=== PATIENT | male | born 1990 | race Caucasian/White ===

== ENCOUNTER 2016-12-24 06:01 | Emergency (ER) | payer BC, OTHER ==
[~2016-12-24] VITALS: Ht 177.8 cm; Wt 117.9 kg
[~2016-12-24 06:01] MED LIST: ALBUTEROL2.5 MG/0.5 INH; AMBIEN 5 MG TABL5 M1 PO; AMITRIPTYLINE H10 M3 PO; AMOXICILLIN 50500 M1 PO; ATIVAN1 MG PO; BACTRIM DS TAB1 EACH PO; CARAFATE 1 GM TA1 G1; CARISOPRODOL 3350 MG PO; CATAPRES0.1 MG PO; CELEXA20 MG PO; CELEXA40 MG PO; CIALIS10 MG PO; CLARITIN10 MG PO; DILAUDID 2 MG TA2 MG; DILAUDID 2 MG TA2 MG PO; GABADONE CAPSU1 EAC1 PO; HYDROCHLOROTHIA25 M2 PO; HYDROCODON-ACE1 EAC8 PO; IBUPROFEN 600600 M1 PO; KETALAR100 MG/1 M PO; LAMICTAL100 MG PO; LEVAQUIN 500 M500 M2 PO; LEXAPRO20 MG PO; LIORESAL 10 MG10 MG PO; LISINOPRIL20 MG PO; LOPRESSOR25 PO; LOXAPINE10 MG PO; MEDROLDOSEPACK PO; MOBIC15 MG PO; NEURONTIN 300300 M1 PO; NORCO 5-325 TA1 EACH PO; OMEPRAZOLE40 MG PO; OXYCODONE HCL 55 MG PO; OXYCODONE HCL E10 MG PO; OXYCONTIN10 M1 PO; PERCOCET 10-321 EACH PO; PERCOCET 5-3251 EACH PO; PHENERGAN 25 MG25 M1 PO; PRAZOSIN HCL1 MG PO; PREDNISONE 10 M10 MG PO; PREDNISONE 20 M20 MG PO; PREDNISONE50 MG PO; PRILOSEC 20 MG20 MG PO; PROAIR HFA8.5 GM IH; PROZAC10 MG PO; RISPERDAL0.25 MG PO; SEROQUEL 50 MG50 MG PO; TESSALON PERLE100 MG PO; TIZANIDINE HCL2 M1 PO; TYLENOL325 MG PO; VALIUM10 MG PO; VALIUM5 MG PO; VENTOLIN HFA 1818 GM INH; VICOPROFEN 2001 EACH PO; XANAX 1 MG TABLE1 MG PO; XANAX XR1 MG PO; ZOFRAN ODT4 MG PO; ZUPLENZ4 MG PO
[2016-12-24] MEDS ORDERED: NORCO 5-325 TA1 EACH PO (07:17)
== END 2016-12-24 07:52 | disposition home or self-care (01) ==
LOC: ER 06:01
DX: M54.6 Pain in thoracic spine (principal); J06.9 Acute upper respiratory infection, unspecified; J45.909 Unspecified asthma, uncomplicated; F12.10 Cannabis abuse, uncomplicated; G40.909 Epilepsy, unspecified, not intractable, without status epilepticus; Z86.69 Personal history of other diseases of the nervous system and sense organs

== ENCOUNTER 2017-01-17 08:56 | Emergency (ER) | payer BC, OTHER ==
[~2017-01-17] VITALS: Ht 177.8 cm; Wt 127.0 kg
[2017-01-17] MEDS ORDERED: OXYCONTIN10 M1 PO (09:19)
[2017-01-17 09:55] LABS: URINE BILIRUBIN NEGATIVE (Negative); URINE BLOOD NEGATIVE (Negative); URINE COLOR YELLOW; URINE GLUCOSE-RANDOM* NEGATIVE (Negative); URINE KETONES NEGATIVE (Negative); URINE NITRITE NEGATIVE (Negative); URINE PROTEIN (DIPSTICK) NEGATIVE (Negative); URINE UROBILINOGEN 0.2 E.U./dl (0.2-1.0)
[2017-01-17 10:01] LABS: ABSOLUTE NEUTROPHILS 3.9 thou/uL (1.4-8.2); BASOPHILS 0.5 % (0.0-2.0); EOSINOPHILS 1.8 % (0.0-3.0); HEMATOCRIT 44.2 % (42.0-52.0); HEMOGLOBIN 15.3 gm/dL (14.0-18.0); LYMPHOCYTES 24.4 % (24.0-44.0); MCH 32.8 pg (26.0-34.0); MCHC 34.6 g/dL (28.0-37.0); MCV 94.9 fL (80.0-100.0); MONOCYTES 8.8 % (1.0-8.0); PLATELET COUNT 169 thou/uL (150-400); POLYS 64.5 % (36.0-66.0); RBC 4.66 mil/uL (4.50-6.00); RDW 12.3 % (10.5-14.5)
[2017-01-17 10:03] LABS: MANUAL DIFF NO
[2017-01-17 10:07] LABS: CALCIUM 9.1 mg/dL (8.5-10.1); CREATININE 0.9 mg/dL (0.7-1.3); POTASSIUM 4.2 mmol/L (3.5-5.1)
[2017-01-17 10:19] LABS: SSA (PROTEIN CONFIRMATORY) NEGATIVE (Negative)
[2017-01-17 11:35] LABS: AMP/METHAMP Negative (Negative); BARBITURATES Negative (Negative); BENZODIAZEPINES POSITIVE (Negative); COCAINE Negative (Negative); METHADONE Negative (Negative); OPIATES Negative (Negative); PCP Negative (Negative); THC POSITIVE (Negative)
== END 2017-01-17 12:30 | disposition home or self-care (01) ==
LOC: ER 08:56
PROVIDERS: Nurse Practitioner
DX: R10.9 Unspecified abdominal pain (principal); R11.2 Nausea with vomiting, unspecified; J45.909 Unspecified asthma, uncomplicated; G40.909 Epilepsy, unspecified, not intractable, without status epilepticus; F12.10 Cannabis abuse, uncomplicated; Z87.891 Personal history of nicotine dependence; Z88.8 Allergy status to other drugs, medicaments and biological substances; Z86.69 Personal history of other diseases of the nervous system and sense organs

== ENCOUNTER 2017-01-24 10:47 | Emergency (ER) | payer BC, OTHER ==
[~2017-01-24] VITALS: Ht 175.3 cm; Wt 127.0 kg
[2017-01-24] MEDS ORDERED: DOXYCYCLINE 10100 MG PO (13:56)
[2017-01-24] MEDS ORDERED: HYDROCODONE-AP1 EAC6 PO (13:56)
[2017-01-24] MEDS ORDERED: IBUPROFEN 800800 M1 PO (13:56)
== END 2017-01-24 14:00 | disposition home or self-care (01) ==
LOC: ER 10:47
DX: L02.01 Cutaneous abscess of face (principal); J45.909 Unspecified asthma, uncomplicated; F10.99 Alcohol use, unspecified with unspecified alcohol-induced disorder; Z87.891 Personal history of nicotine dependence; Z91.041 Radiographic dye allergy status

== ENCOUNTER 2017-02-15 11:49 | Emergency (ER) | payer BC, OTHER ==
[~2017-02-15] VITALS: Ht 177.8 cm; Wt 117.9 kg
[~2017-02-15 11:49] MED LIST changes: +DOXYCYCLINE 10100 MG PO; +HYDROCODONE-AP1 EAC6 PO; +IBUPROFEN 800800 M1 PO
[2017-02-15] MEDS ORDERED: IBUPROFEN 800800 M1 PO (13:39)
[2017-02-15] MEDS ORDERED: ZOFRAN ODT4 MG PO (13:49)
== END 2017-02-15 14:02 | disposition home or self-care (01) ==
LOC: ER 11:49
DX: S16.1XXA Strain of muscle, fascia and tendon at neck level, initial encounter (principal); S70.01XA Contusion of right hip, initial encounter; S09.90XA Unspecified injury of head, initial encounter; M25.511 Pain in right shoulder; J45.909 Unspecified asthma, uncomplicated; Z91.041 Radiographic dye allergy status; Z87.891 Personal history of nicotine dependence; W10.9XXA Fall (on) (from) unspecified stairs and steps, initial encounter; Y93.89 Activity, other specified; Y92.89 Other specified places as the place of occurrence of the external cause; Y99.8 Other external cause status

== ENCOUNTER 2017-03-06 14:51 | Emergency (ER) | payer BC, OTHER ==
[~2017-03-06] VITALS: Ht 175.3 cm; Wt 117.9 kg
[2017-03-06 15:33] LABS: ABSOLUTE NEUTROPHILS 8.3 thou/uL (1.4-8.2); BASOPHILS 0.5 % (0.0-2.0); EOSINOPHILS 0.3 % (0.0-3.0); HEMATOCRIT 47.4 % (42.0-52.0); HEMOGLOBIN 16.7 gm/dL (14.0-18.0); LYMPHOCYTES 17.2 % (24.0-44.0); MCH 32.7 pg (26.0-34.0); MCHC 35.2 g/dL (28.0-37.0); MCV 92.9 fL (80.0-100.0); MONOCYTES 7.8 % (1.0-8.0); PLATELET COUNT 208 thou/uL (150-400); POLYS 74.2 % (36.0-66.0); RDW 12.9 % (10.5-14.5); WBC 11.2 thou/uL (4.0-11.0)
[2017-03-06 15:35] LABS: MANUAL DIFF NO
[2017-03-06] MEDS ORDERED: CARAFATE 1 GM TA1 G1 PO (16:08)
== END 2017-03-06 16:22 | disposition home or self-care (01) ==
LOC: ER 14:51
PROVIDERS: Nurse Practitioner
DX: R07.0 Pain in throat (principal); J45.909 Unspecified asthma, uncomplicated; Z91.041 Radiographic dye allergy status; Z87.891 Personal history of nicotine dependence

== ENCOUNTER 2017-05-06 11:20 | Emergency (ER) | payer BC, OTHER ==
[~2017-05-06] VITALS: Ht 175.3 cm; Wt 127.0 kg
[~2017-05-06 11:20] MED LIST changes: +ALPRAZOLAM2 M2 PO; +CARAFATE 1 GM TA1 G1 PO; +CLONAZEPAM 0.50.5 M1 PO; +LOPERAMIDE 2 MG2 M1 PO; +PEPCID20 MG PO
[2017-05-06 11:50] LABS: URINE BILIRUBIN NEGATIVE (Negative); URINE BLOOD 3+ (Negative); URINE CLARITY CLEAR; URINE COLOR YELLOW; URINE GLUCOSE-RANDOM* NEGATIVE (Negative); URINE KETONES NEGATIVE (Negative); URINE NITRITE-REFLEX NEGATIVE (Negative); URINE PROTEIN (DIPSTICK) TRACE (Negative); URINE SPECIFIC GRAVITY >= 1.030 (1.005-1.035); URINE UROBILINOGEN 0.2 E.U./dl (0.2-1.0)
[2017-05-06 11:53] LABS: URINE LEUKOCYTES-REFLEX 2+ (Negative)
[2017-05-06 12:02] LABS: CASTS None Seen /LPF (None Seen); CRYSTALS None Seen /LPF (None Seen); SQUAMOUS None Seen /LPF (0-3); URINE RBC 3-10 Few /HPF (0-2); URINE WBC-REFLEX 6-15 Few /HPF (0-5)
[2017-05-06 12:03] LABS: BACTERIA-REFLEX None Seen /HPF (None Seen)
[2017-05-06 12:32] LABS: ABSOLUTE NEUTROPHILS 8.1 thou/uL (1.4-8.2); BASOPHILS 0.4 % (0.0-2.0); EOSINOPHILS 1.6 % (0.0-3.0); HEMATOCRIT 42.8 % (42.0-52.0); HEMOGLOBIN 14.9 gm/dL (14.0-18.0); LYMPHOCYTES 18.4 % (24.0-44.0); MCH 32.5 pg (26.0-34.0); MCHC 34.7 g/dL (28.0-37.0); MCV 93.6 fL (80.0-100.0); MONOCYTES 4.5 % (1.0-8.0); PLATELET COUNT 221 thou/uL (150-400); POLYS 75.1 % (36.0-66.0); RBC 4.58 mil/uL (4.50-6.00); RDW 13.2 % (10.5-14.5); WBC 10.8 thou/uL (4.0-11.0)
[2017-05-06 12:39] LABS: CALCIUM 9.2 mg/dL (8.5-10.1); CREATININE 1.1 mg/dL (0.7-1.3); POTASSIUM 3.9 mmol/L (3.5-5.1)
[2017-05-06 13:14] VITALS: BP 125/64
[2017-05-06] MEDS ORDERED: KEFLEX500 M1 PO (13:15)
== END 2017-05-06 13:32 | disposition home or self-care (01) ==
LOC: ER 11:20
PROVIDERS: Physician Assistant
DX: N39.0 Urinary tract infection, site not specified (principal); J45.909 Unspecified asthma, uncomplicated

== ENCOUNTER 2017-10-17 14:58 | Observation (INO) | payer BC, OTHER ==
[~2017-10-17] VITALS: Ht 175.3 cm; Wt 127.0 kg
[~2017-10-17 14:58] MED LIST changes: +KEFLEX500 M1 PO
[2017-10-17 15:10] VITALS: BP 149/99
[2017-10-17 17:07] LABS: ABSOLUTE NEUTROPHILS 5.7 thou/uL (1.4-8.2); BASOPHILS 0.7 % (0.0-2.0); EOSINOPHILS 1.1 % (0.0-3.0); HEMATOCRIT 45.4 % (42.0-52.0); HEMOGLOBIN 15.9 gm/dL (14.0-18.0); LYMPHOCYTES 17.9 % (24.0-44.0); MCH 33.4 pg (26.0-34.0); MCV 95.5 fL (80.0-100.0); MONOCYTES 7.6 % (1.0-8.0); PLATELET COUNT 149 thou/uL (150-400); POLYS 72.7 % (36.0-66.0); RBC 4.75 mil/uL (4.50-6.00); RDW 12.6 % (10.5-14.5); WBC 7.9 thou/uL (4.0-11.0)
[2017-10-17 17:17] LABS: POTASSIUM 4.4 mmol/L (3.5-5.1)
[2017-10-17 17:23] LABS: ALBUMIN 4.2 g/dL (3.4-5.0); TOTAL BILIRUBIN 0.7 mg/dL (<0.1-1.0)
[2017-10-17] MEDS ORDERED: CLARITIN10 MG PO (18:50)
[2017-10-17] MEDS ORDERED: BENZTROPINE MESY2 MG PO (18:50)
[2017-10-17] MEDS ORDERED: GEODON60 MG PO (18:50)
[2017-10-17] MEDS ORDERED: NAPROXEN375 MG PO (18:52)
[2017-10-17] MEDS ORDERED: SILDENAFIL20 MG PO (18:53)
[2017-10-17 19:00] VITALS: BP 145/92
[2017-10-17 19:23] LABS: APTT 30.8 Seconds (24.5-32.8); PROTIME 10.5 Seconds (9.3-11.4)
[2017-10-17 21:58] VITALS: BP 143/88
[2017-10-17 22:00] VITALS: BP 141/67
[2017-10-18 04:00] VITALS: BP 107/93
[2017-10-18 07:12] VITALS: BP 135/79
[2017-10-18 08:15] VITALS: BP 135/79
[2017-10-18 14:27] LABS: CLARITY SLIGHTLY CLOUDY; COLOR CLEAR; SOURCE SYNOVIAL; TOTAL VOLUME 1 mL
[2017-10-18 14:39] LABS: BF CRYSTALS No Crystals seen
[2017-10-18 14:43] LABS: BF NUCLEATED CELLS 78; BF RBC 76
[2017-10-18 16:08] LABS: BF MACROPHAGE 36; BF NEUTROPHILS 6
[2017-10-18 17:08] LABS: ALBUMIN 3.7 g/dL (3.4-5.0); DIRECT BILIRUBIN 0.2 mg/dL (<0.1-0.3); TOTAL BILIRUBIN 0.6 mg/dL (<0.1-1.0)
[2017-10-18 19:15] VITALS: BP 135/79
[2017-10-18 19:52] VITALS: BP 135/79
== END 2017-10-18 20:03 | disposition home or self-care (01) ==
LOC: ER 14:58 → EROBS 18:21 → 4N 18:21
PROVIDERS: Emergency Medicine; Hospitalist; Orthopaedic Surgery Sports Medicine
DX: M70.71 Other bursitis of hip, right hip (principal); M25.551 Pain in right hip; R74.0 Nonspecific elevation of levels of transaminase and lactic acid dehydrogenase [LDH]; F41.9 Anxiety disorder, unspecified; F31.9 Bipolar disorder, unspecified; F11.11 Opioid abuse, in remission; I82.409 Acute embolism and thrombosis of unspecified deep veins of unspecified lower extremity; I10 Essential (primary) hypertension; R56.9 Unspecified convulsions; K76.89 Other specified diseases of liver; F17.210 Nicotine dependence, cigarettes, uncomplicated; W18.2XXA Fall in (into) shower or empty bathtub, initial encounter; Y93.9 Activity, unspecified; Y92.009 Unspecified place in unspecified non-institutional (private) residence as the place of occurrence of the external cause; Z72.89 Other problems related to lifestyle; Z98.890 Other specified postprocedural states

== ENCOUNTER 2017-10-26 20:57 | Emergency (ER) | payer BC, OTHER ==
[~2017-10-26] VITALS: Ht 175.3 cm; Wt 127.0 kg
[~2017-10-26 20:57] MED LIST changes: +BENZTROPINE MESY2 MG PO; +GEODON60 MG PO; +NAPROXEN375 MG PO; +SILDENAFIL20 MG PO
[2017-10-26 21:11] LABS: HEMATOCRIT 47.1 % (42.0-52.0); HEMOGLOBIN 16.5 gm/dL (14.0-18.0); MCH 33.2 pg (26.0-34.0); MCHC 34.9 g/dL (28.0-37.0); MCV 95.2 fL (80.0-100.0); RBC 4.95 mil/uL (4.50-6.00); RDW 12.5 % (10.5-14.5); WBC 11.2 thou/uL (4.0-11.0)
[2017-10-26 21:19] LABS: CALCIUM 9.5 mg/dL (8.5-10.1); CREATININE 1.2 mg/dL (0.7-1.3); POTASSIUM 3.4 mmol/L (3.5-5.1)
[2017-10-26] MEDS ORDERED: CLONAZEPAM 1 MG1 M1 PO (21:20)
[2017-10-26] MEDS ORDERED: XANAX1 MG PO (21:21)
[2017-10-26 21:25] LABS: ALBUMIN 4.6 g/dL (3.4-5.0); TOTAL BILIRUBIN 0.7 mg/dL (<0.1-1.0); TOTAL PROTEIN 7.9 g/dL (6.4-8.2)
[2017-10-27 00:15] LABS: AMP/METHAMP Negative (Negative); BARBITURATES Negative (Negative); BENZODIAZEPINES POSITIVE (Negative); COCAINE Negative (Negative); METHADONE Negative (Negative); OPIATES Negative (Negative); PCP Negative (Negative)
== END 2017-10-27 00:24 | disposition home or self-care (01) ==
LOC: ER 20:57
PROVIDERS: Physician Assistant
DX: S09.90XA Unspecified injury of head, initial encounter (principal); F13.10 Sedative, hypnotic or anxiolytic abuse, uncomplicated; M25.571 Pain in right ankle and joints of right foot; M54.9 Dorsalgia, unspecified; M25.561 Pain in right knee; M54.2 Cervicalgia; F17.210 Nicotine dependence, cigarettes, uncomplicated; J45.909 Unspecified asthma, uncomplicated; F41.9 Anxiety disorder, unspecified; Z91.041 Radiographic dye allergy status; V89.2XXA Person injured in unspecified motor-vehicle accident, traffic, initial encounter; Y93.89 Activity, other specified; Y92.89 Other specified places as the place of occurrence of the external cause; Y99.8 Other external cause status

== ENCOUNTER 2017-11-09 14:42 | Emergency (ER) | payer BC, OTHER ==
[~2017-11-09] VITALS: Ht 175.3 cm; Wt 99.8 kg
[~2017-11-09 14:42] MED LIST changes: +CLONAZEPAM 1 MG1 M1 PO; +XANAX1 MG PO
[2017-11-09] MEDS ORDERED: BACTROBAN CREAM30 G1 TOP (15:10)
[2017-11-09] MEDS ORDERED: BACTRIM DS TAB1 EACH PO (15:10)
== END 2017-11-09 15:32 | disposition home or self-care (01) ==
LOC: ER 14:42
DX: L01.00 Impetigo, unspecified (principal); J45.909 Unspecified asthma, uncomplicated; F17.210 Nicotine dependence, cigarettes, uncomplicated; Z91.041 Radiographic dye allergy status

== ENCOUNTER 2019-08-01 10:03 | Emergency (ER) | payer BC, OTHER ==
[~2019-08-01] VITALS: Ht 175.3 cm; Wt 127.0 kg
[~2019-08-01 10:03] MED LIST changes: +BACTROBAN CREAM30 G1 TOP
[2019-08-01] MEDS ORDERED: GUAIFEN-CODEINE10 ML PO (12:16)
[2019-08-01 12:36] VITALS: BP 134/90
== END 2019-08-01 12:36 | disposition home or self-care (01) ==
LOC: ER 10:03
DX: J06.9 Acute upper respiratory infection, unspecified (principal); J45.909 Unspecified asthma, uncomplicated; F17.210 Nicotine dependence, cigarettes, uncomplicated; Z79.899 Other long term (current) drug therapy; Z91.041 Radiographic dye allergy status

== ENCOUNTER 2020-11-15 13:19 | Emergency (ER) | payer BC, OTHER ==
[~2020-11-15] VITALS: Ht 175.3 cm; Wt 131.5 kg
[~2020-11-15 13:19] MED LIST changes: +GUAIFEN-CODEINE10 ML PO
[2020-11-15 13:48] LABS: BASOPHILS 0.5 % (0.0-2.0); EOSINOPHILS 1.9 % (0.0-3.0); HEMATOCRIT 43.5 % (42.0-52.0); LYMPHOCYTES 21.8 % (24.0-44.0); MCH 33.1 pg (26.0-34.0); MCHC 34.5 g/dL (28.0-37.0); MCV 96.1 fL (80.0-100.0); MONOCYTES 12.1 % (1.0-8.0); PLATELET COUNT 120 thou/uL (150-400); POLYS 63.7 % (36.0-66.0); RBC 4.53 mil/uL (4.50-6.00); RDW 13.6 % (10.5-14.5); WBC 4.7 thou/uL (4.0-11.0)
[2020-11-15 14:13] LABS: CHLORIDE 108 mmol/L (98-107); POTASSIUM 3.7 mmol/L (3.5-5.1); TROPONIN-I <0.06 ng/mL (<0.06)
[2020-11-15 14:36] LABS: BUN 8 mg/dL (7-18); CO2 24 mmol/L (21-32); CREATININE 1.1 mg/dL (0.7-1.3); GLUCOSE 92 mg/dL (74-106)
[2020-11-15 14:37] LABS: ANION GAP 10 mmol/L (7-16); SODIUM 142 mmol/L (136-145)
[2020-11-15 14:38] LABS: ALBUMIN 3.9 g/dL (3.4-5.0); TOTAL PROTEIN 7.5 g/dL (6.4-8.2)
[2020-11-15 14:39] LABS: CALCIUM 8.6 mg/dL (8.5-10.1); SGOT 137 U/L (15-37); SGPT 276 U/L (16-63); TOTAL BILIRUBIN 0.4 mg/dL (0.2-1.0)
[2020-11-15] MEDS ORDERED: DECADRON6 MG PO (15:18)
[2020-11-15] MEDS ORDERED: DEXAMETHASONE6 MG PO (15:48)
[2020-11-15 15:50] VITALS: BP 150/92
--- NOTE | 2020-11-16 07:50 | EKG ---
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
== END 2020-11-15 15:52 | disposition home or self-care (01) ==
LOC: ER 13:19
PROVIDERS: Emergency Medicine
DX: U07.1 COVID-19 (principal); J45.909 Unspecified asthma, uncomplicated; F32.9 Major depressive disorder, single episode, unspecified; F41.9 Anxiety disorder, unspecified; F31.9 Bipolar disorder, unspecified; F17.210 Nicotine dependence, cigarettes, uncomplicated; Z79.899 Other long term (current) drug therapy; Z72.89 Other problems related to lifestyle; Z91.041 Radiographic dye allergy status

== ENCOUNTER 2020-11-23 10:12 | Emergency (ER) | payer OTHER ==
[~2020-11-23] VITALS: Ht 175.3 cm; Wt 127.0 kg
[~2020-11-23 10:12] MED LIST changes: +DECADRON6 MG PO; +DEXAMETHASONE6 MG PO
[2020-11-23 10:52] LABS: ABSOLUTE NEUTROPHILS 7.1 thou/uL (1.4-8.2); BASOPHILS 0.2 % (0.0-2.0); EOSINOPHILS 0.1 % (0.0-3.0); HEMATOCRIT 41.9 % (42.0-52.0); HEMOGLOBIN 14.9 gm/dL (14.0-18.0); MCHC 35.6 g/dL (28.0-37.0); MCV 92.7 fL (80.0-100.0); MONOCYTES 6.9 % (1.0-8.0); PLATELET COUNT 115 thou/uL (150-400); POLYS 83.8 % (36.0-66.0); RBC 4.52 mil/uL (4.50-6.00); RDW 13.3 % (10.5-14.5); WBC 8.5 thou/uL (4.0-11.0)
[2020-11-23 11:03] LABS: ANION GAP 14 mmol/L (7-16); BUN 13 mg/dL (7-18); CALCIUM 8.4 mg/dL (8.5-10.1); CHLORIDE 104 mmol/L (98-107); CO2 20 mmol/L (21-32); GLUCOSE 125 mg/dL (74-106); POTASSIUM 3.1 mmol/L (3.5-5.1); SODIUM 138 mmol/L (136-145)
[2020-11-23 11:13] LABS: ALBUMIN 3.4 g/dL (3.4-5.0); SGOT 51 U/L (15-37); SGPT 179 U/L (30-65); TOTAL BILIRUBIN 0.7 mg/dL (0.2-1.0); TROPONIN-I <0.06 ng/mL (<0.06)
[2020-11-23 12:21] LABS: URINE BILIRUBIN NEGATIVE (Negative); URINE BLOOD NEGATIVE (Negative); URINE CLARITY CLEAR; URINE COLOR YELLOW; URINE GLUCOSE-RANDOM* NEGATIVE (Negative); URINE KETONES NEGATIVE (Negative); URINE LEUKOCYTES-REFLEX NEGATIVE (Negative); URINE NITRITE-REFLEX NEGATIVE (Negative); URINE PROTEIN (DIPSTICK) NEGATIVE (Negative); URINE SPECIFIC GRAVITY <= 1.005 (1.005-1.035); URINE UROBILINOGEN 0.2 E.U./dl (0.2-1.0)
[2020-11-23 12:56] VITALS: BP 113/66
--- NOTE | 2020-11-24 07:38 | EKG ---
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 : 1990 Requested By: Jayden Hargrove Order Number: [id number] MD: Luis Cazares Measurements Intervals [place] Rate: 122 P: 22 AR: 153 QRS: -19 QRSD: 83 T: 59 QT: 337 QTc: 480 Interpretive Statements Sinus tachycardia Borderline left axis deviation Borderline prolonged QT interval Compared to ECG 11/15/2020 13:17:42 No significant changes Electronically Signed On 11-24-2020 7:38:35 CDT by Luis Cazares [email or web address] <ELECTRONICALLY SIGNED> By: Luis Cazares MD, [facility] 11/24/20 0738 1023 22 Luis Cazares MD, FACC /EPI
== END 2020-11-23 13:25 | disposition home or self-care (01) ==
LOC: ER 10:12
PROVIDERS: Emergency Medicine
DX: U07.1 COVID-19 (principal); R06.09 Other forms of dyspnea; J45.909 Unspecified asthma, uncomplicated; F32.9 Major depressive disorder, single episode, unspecified; F41.9 Anxiety disorder, unspecified; F17.210 Nicotine dependence, cigarettes, uncomplicated; Z79.891 Long term (current) use of opiate analgesic; Z79.899 Other long term (current) drug therapy; Z91.048 Other nonmedicinal substance allergy status